=== PATIENT | female | born 1970 | race Caucasian/White ===

== ENCOUNTER 2016-11-19 19:32 | Inpatient (IN) | payer MEDICAID ==
[~2016-11-19] VITALS: Ht 149.9 cm; Wt 88.0 kg
[2016-11-19 19:48] VITALS: BP 112/65
--- NOTE | 2016-11-19 20:01 | NUR ---
EKG COMPLETED BY VERN; SHOWN TO ER MD DR BAH BY KONG
--- NOTE | 2016-11-19 20:31 | NUR ---
PT TAKEN TO BED 4
--- NOTE | 2016-11-19 20:35 | NUR ---
PT PRESENTS TO THE ED C/O OF CHEST PAIN. PT STATES THAT IT IS OVER HER CHEST, C/O OF THROBBING PAIN RADIATING TO HER LEFT ARM AND BACK. PT STATES PAIN IS 9/10. PT IS AAO, RR EVEN/UNLABORED, CAP REFILL IMMEDIATE. PT DENIES N/D, BUT STATES THAT SHE HAD AN EPISODE OF VOMITING X1. PT DENIES ANY PAST MEDICAL HISTORY. BED REPOSITIONED FOR COMFORT, BED PUT IN LOWEST POSITION, ER MD DR. BAH MADE AWARE, WILL CONTINUE TO MONITOR.
--- NOTE | 2016-11-19 21:18 | NUR ---
Viola arriaza in [facility] - 11/19/[address] at [address] Cristina evaluating patient at bedside.
--- NOTE | 2016-11-19 21:18 | NUR ---
ER MD DR. BAH EVALUATING PT AT BEDSIDE.
[2016-11-19 21:46] LABS: BASOPHILS # (AUTO) 0.3 K/uL (0.00-0.22); EOSINOPHILS # (AUTO) 0.2 K/uL (0-0.4); EOSINOPHILS % (AUTO) 1.7 % (0.0-4.0); HEMATOCRIT 38.8 % (36-48); HEMOGLOBIN 12.5 g/dL (12.0-16.0); LYMPHOCYTES # (AUTO) 1.3 K/uL (2.5-16.5); LYMPHOCYTES % (AUTO) 10.2 % (20.5-51.1); MEAN CORPUSCULAR HEMOGLOBIN 25 pg (27-31); MEAN CORPUSCULAR HGB CONC 32 g/dL (33-37); MEAN CORPUSCULAR VOLUME 79 fL (80-94); MONOCYTES # (AUTO) 0.6 K/uL (0.8-1.0); MONOCYTES % (AUTO) 4.4 % (1.7-9.3); NEUTROPHILS # (AUTO) 10.1 K/uL (1.8-7.7); NEUTROPHILS % (AUTO) 81.7 % (42.2-75.2); PLATELET COUNT (AUTO) 200 K/uL (140-450); RED BLOOD CELL COUNT(AUTO) 4.93 MIL/uL (4.20-5.40); RED CELL DISTRIBUTION WIDTH 13.5 % (11.6-13.7); WHITE BLOOD COUNT (AUTO) 12.5 K/uL (4.8-10.8)
--- NOTE | 2016-11-19 21:55 | NUR ---
XRAY AT BEDSIDE.
[2016-11-19 22:02] LABS: ANION GAP 10.3 (8-16); CARBON DIOXIDE 26.7 mmol/L (21-32); CREATININE 0.7 mg/dL (0.6-1.3)
[2016-11-19 22:07] LABS: ALBUMIN 3.4 g/dL (3.4-5.0); TOTAL BILIRUBIN 0.5 mg/dL (0.0-1.0)
[2016-11-19 22:09] LABS: AMYLASE 30 U/L (25-115); LIPASE 114 U/L (73-393)
--- NOTE | 2016-11-19 23:06 | NUR ---
CONCHITA BAH AT BEDSIDE.
[2016-11-19] MEDS ORDERED: DOCUSATE SODIUM 100 MG GELCAP PO PRN (23:35)
[2016-11-19] MEDS ORDERED: ONDANSETRON 4 MG/2 ML VIAL IM/IVP PRN (23:35)
[2016-11-19] MEDS ORDERED: KETOROLAC 30 MG/ML VIAL IVP PRN (23:35)
[2016-11-19] MEDS ORDERED: MORPHINE SULFATE 2 MG/ML SYR IVP PRN (23:35)
[2016-11-19 23:53] LABS: APPEARANCE,URINE CLEAR (CLEAR); BILIRUBIN,URINE NEGATIVE (NEGATIVE); BLOOD, URINE NEGATIVE (NEGATIVE); COLOR,URINE YELLOW (YELLOW); LEUKOCYTE ESTERASE ,URINE NEGATIVE (NEGATIVE); NITRITE, URINE NEGATIVE (NEGATIVE); UGLUCOSE 1+ (NEGATIVE)
[2016-11-19 23:55] LABS: PROTHROMBIN TIME 9.8 secs (10.8-13.4)
[2016-11-19 23:59] LABS: BARBITURATE, URINE NEG. ng/ml (NEG <=200); BENZODIAZEPINE, URINE NEG. ng/mL (NEG <=200)
[2016-11-20 00:06] LABS: CHOL/HDL RATIO 3.1 (1-4.5); FREE T4 (FREE THYROXINE) 1.01 ng/dL (0.76-1.46); MAGNESIUM 1.8 mg/dL (1.8-2.4); PHOSPHORUS 3.5 mg/dL (2.5-4.9); THYROID STIMULATING HORMONE 0.66 uIU/mL (0.34-3.74)
[2016-11-20 00:08] LABS: RBC,URINE 0-5 (RARE) /HPF (0-5); WBC,URINE 0-5 (RARE) /HPF (0-5)
[2016-11-20 00:15] LABS: CANNABINOID, URINE NEG. ng/mL (NEG <=50); COCAINE, URINE NEG. ng/mL (NEG <=300); OPIATE, URINE NEG. ng/mL (NEG <=2000); PHENCYCLIDINE SCREEN,URINE NEG. ng/mL (NEG <=25)
--- NOTE | 2016-11-20 00:18 | NUR ---
Patient will be admitted to care of DR. ANDUJAR. Admited to TELEMETRY. Will go to room 119A. Belongings list completed. Report to LIZZIE FERNANDO.
--- NOTE | 2016-11-20 00:30 | NUR ---
ADMITTED THIS 46 YEAR OLD FEMALE FROM ER PER MEJIA WITH CC OF CHEST PAIN, AMBULATED TO BED WITH STEADY GAIT, ASSESSMENT DONE, AAOX4 MALAY SPEAKING ONLY, HX OBTAINED FROM WHO CAN SPEAK, 6/10 CHEST PAIN AT THIS TIME, WILL MEDICATE PRN, INSTRUCTED NPO EXCEPT MEDS, VERBALIZED UNDERSTANDING, PLAN OF CARE DISCUSSED, CALL LIGHT WITHIN REACH.
[2016-11-20] MEDS: HYDROcodone/APAP 7.5/325 MG 1 TAB PO PRN ×3 (00:41→21:22)
[2016-11-20] MEDS: NACL 0.9% 1,000 ML IV SCH ×4 (00:50→23:35)
[2016-11-20 01:00] VITALS: BP 135/74
--- NOTE | 2016-11-20 01:30 | NUR ---
PT AWAKE, VERBALIZED NO MORE CHEST PAIN, NO SOB NOTED, IVF INFUSING WELL, MONITORED CLOSELY.
[2016-11-20] MEDS ORDERED: NITROGLYCERIN 0.4 MG TAB SL PRN (02:55)
[2016-11-20] MEDS ORDERED: DEXTROSE 50% 50 ML SYR IVP PRN (03:00)
--- NOTE | 2016-11-20 04:00 | NUR ---
PT SLEEPING, VITAL SIGNS STABLE, AFEBRILE, DENIES ANY PAIN, IVF INFUSING WELL, MONITORED CLOSELY.
[2016-11-20 04:13] LABS: EOSINOPHILS # (AUTO) 0.2 K/uL (0-0.4); EOSINOPHILS % (AUTO) 1.6 % (0.0-4.0); HEMOGLOBIN 11.8 g/dL (12.0-16.0); WHITE BLOOD COUNT (AUTO) 12.6 K/uL (4.8-10.8)
[2016-11-20 04:22] LABS: ANION GAP 9.5 (8-16); CARBON DIOXIDE 25.8 mmol/L (21-32); CREATININE 0.5 mg/dL (0.6-1.3); POTASSIUM 3.3 mmol/L (3.5-5.1)
[2016-11-20 04:26] LABS: BASOPHILS # (AUTO) 0.2 K/uL (0.00-0.22); BASOPHILS % (AUTO) 1.8 % (0.0-2.0); HEMATOCRIT 36.2 % (36-48); LYMPHOCYTES % (AUTO) 15.6 % (20.5-51.1); MEAN CORPUSCULAR HEMOGLOBIN 26 pg (27-31); MEAN CORPUSCULAR HGB CONC 33 g/dL (33-37); MEAN CORPUSCULAR VOLUME 79 fL (80-94); MONOCYTES # (AUTO) 0.7 K/uL (0.8-1.0); MONOCYTES % (AUTO) 5.5 % (1.7-9.3); NEUTROPHILS # (AUTO) 9.5 K/uL (1.8-7.7); NEUTROPHILS % (AUTO) 75.5 % (42.2-75.2); PLATELET COUNT (AUTO) 195 K/uL (140-450); RED BLOOD CELL COUNT(AUTO) 4.59 MIL/uL (4.20-5.40); RED CELL DISTRIBUTION WIDTH 13.6 % (11.6-13.7)
[2016-11-20 04:31] VITALS: BP 129/66
[2016-11-20] MEDS: INSULIN LISPRO SLIDING SCALE 100 UNITS/ML VIAL SUBQ PRN ×4 (05:52→21:28)
--- NOTE | 2016-11-20 06:00 | NUR ---
BLOOD SUGAR CHECKED WITH 164 RESULT, INSULIN COVERAGE GIVEN WITH EDUCATION PROVIDED, SCD'S APPLIED TO BLE, DENIES ANY PAIN AT THIS TIME, MONITORED CLOSELY.
[2016-11-20] MEDS: BLOOD GLUCOSE MONITORING 1 DEV DEV FS SCH ×4 (06:40→21:27)
--- NOTE | 2016-11-20 07:10 | NUR ---
PT AWAKE, NO SIGNS OF DISTRESS, REPORT GIVEN TO RN VICTOR M FOR CONTINUITY OF CARE.
--- NOTE | 2016-11-20 07:30 | NUR ---
RECEIVED ON BED AAOX4. NO SOB NOTED. NO C/O PAIN AT THIS TIME. IV TO LT AC PATENT AND INTACT. CHEST CLEAR. ABDOMEN SOFT, BOWEL SOUNDS PRESENT. NO EDEMA NOTED. SCD'S IN PLACE. INSTRUCTED PT TO CALL FOR ASSISTANCE, CALL LIGHT WITHIN REACH. PT VERBALIZED UNDERSTANDING.
[2016-11-20 08:00] VITALS: BP 147/88
[2016-11-20] MEDS ORDERED: metFORMIN 500 MG TAB PO SCH (08:00)
--- NOTE | 2016-11-20 08:12 | NUR ---
PATIENT HAS BEEN SCREENED AND CATEGORIZED HIGH NUTRITION RISK. PATIENT WILL BE SEEN WITHIN 1-2 DAYS OF ADMISSION. 11/20/16-11/21/[address]
[2016-11-20] MEDS: ECOTRIN 81 MG TABEC PO SCH (08:47)
[2016-11-20] MEDS: PANTOPRAZOLE 40 MG TABEC PO SCH ×2 (08:47→21:22)
[2016-11-20] MEDS: LISINOPRIL 5 MG TAB PO SCH (08:47)
--- NOTE | 2016-11-20 10:00 | NUR ---
ECHO ON GOING AT THE BEDSIDE.
[2016-11-20 12:00] VITALS: BP 141/77
--- NOTE | 2016-11-20 13:35 | NUR ---
11/20/16 RD INITIAL ASSESSMENT COMPLETED PLEASE REFER TO NUTRITION ASSESSMENT UNDER CARE ACTIVITY FOR ESTIMATED NUTRITIONAL NEEDS. 1. CONTINUE CONSISTENT CARBOHYDRATE DIET 2. PROVIDE NUTRUTION THERAPY EDUCATION NEEDED 3. RD TO FOLLOW UP WITHIN 2-3 DAYS; HIGH RISK VIMAL MCKAY RD
--- NOTE | 2016-11-20 14:35 | NUR ---
DIABETIC TEACHINGS GIVEN TO PT. PRINT OUTS PRINTED IN [place]GOL[place]. PT VERBALIZED UNDERSTANDING.
[2016-11-20 16:00] VITALS: BP 124/73
--- NOTE | 2016-11-20 16:00 | NUR ---
BLE DOPPLER ULTRASOUND ON GOING AT THE BEDSIDE.
[2016-11-20] MEDS: ACETAMINOPHEN 325 MG TAB PO PRN ×2 (16:13→23:56)
[2016-11-20] MEDS ORDERED: ATORVASTATIN 20 MG TAB PO SCH (17:00)
--- NOTE | 2016-11-20 18:55 | NUR ---
PT RESTING NO SOB NOTED. NO C/O PAIN AT THIS TIME. WILL ENDORSE TO NEXT SHIFT NURSE FOR CONTINUITY OF CARE.
--- NOTE | 2016-11-20 19:30 | NUR ---
RECEIVED REPORT FROM AM NURSE. PT AOX4, AMBULATES INDEPENDENTLY, ABLE TO VERBALIZE NEEDS. PT SOB OR S/S ACUTE DISTRESS. PT C/O CHEST PAIN. SEE PAIN ASSESSMENT. WILL MEDICATE ORDERED. GM IN PLACE. SCDs ENSURED. IV ACCESS ASYMPTOMATIC, PATENT AND INTACT. IVF INFUSING WELL. DISCUSSED AND REVIEWED PLAN OF CARE WITH PT. PT VERBALIZED UNDERSTANDIGN. ALL NEEDS MET. SAFETY MEASURES ENSURED. CALL LIGHT WITHIN REACH. WILL CONTINUE TO MONITOR.
[2016-11-20 20:00] VITALS: BP 130/81
--- NOTE | 2016-11-20 21:30 | NUR ---
ADMINISTERED DUE MEDS WITH EDUCATION. ADMINISTERED INSULIN COVERAGE WITH EVENICK SNACKS. PT C/O PAIN. SEE PAIN ASSESSMENT. ADMINISTERED NORCO PO PRN ORDERED. PT VERBALIZED UNDERSTANDING, TOLERATED MEDS WELL. ALL NEEDS MET. SAFETY MEASURES ENSURED. CALL LIGHT WITHIN REACH. WILL CONTINUE TO MONITOR.
--- NOTE | 2016-11-20 23:58 | NUR ---
PT SLEEPING COMFORTABLY, AROUSABLE. PT DENIES PAIN. NO S/S OF ACUTE DISTRESS. TEMP 101.1, COOLING MEASURES ENSURED. PT REQUESTED TYLENOL. ADMINISTERED TYLENOL PO PRN FOR TEMP PER PT REQUEST. ALL NEEDS MET. SAFETY MEASURES ENSURED. CALL LIGHT WITHIN REACH. WILL CONTINUE TO MONITOR.
[2016-11-21] VITALS: BP 132/81
--- NOTE | 2016-11-21 01:00 | NUR ---
TEMP RECHECKED, 99.5; ICE PACKS AND COOLING MEASURES ENSURED. ALL NEEDS MET. IVF INFUSING WELL. SAFETY MEASURES ENSURED. CALL LIGHT WITHIN REACH. WILL CONTINUE TO MONITOR.
[2016-11-21 04:00] VITALS: BP 134/74
--- NOTE | 2016-11-21 04:03 | NUR ---
PT SLEEPING COMFORTABLY. NO S/S OF ACUTE DISTRESS. TEMP 99.2, COOLING MEASURES MAINTAINED. ALL NEEDS MET. IVF INFUSING WELL. SAFETY MEASURES ENSURED. CALL LIGHT WITHIN REACH. WILL CONTINUE TO MONITOR.
[2016-11-21] MEDS: NACL 0.9% 1,000 ML IV SCH ×2 (04:11→11:32)
[2016-11-21] MEDS: BLOOD GLUCOSE MONITORING 1 DEV DEV FS SCH ×2 (06:49→11:37)
[2016-11-21] MEDS: INSULIN LISPRO SLIDING SCALE 100 UNITS/ML VIAL SUBQ PRN ×2 (06:52→11:43)
[2016-11-21 07:13] LABS: BASOPHILS # (AUTO) 0.1 K/uL (0.00-0.22); BASOPHILS % (AUTO) 0.4 % (0.0-2.0); EOSINOPHILS # (AUTO) 0.1 K/uL (0-0.4); EOSINOPHILS % (AUTO) 0.8 % (0.0-4.0); HEMATOCRIT 34.7 % (36-48); HEMOGLOBIN 11.5 g/dL (12.0-16.0); LYMPHOCYTES # (AUTO) 0.9 K/uL (2.5-16.5); MEAN CORPUSCULAR HEMOGLOBIN 26 pg (27-31); MEAN CORPUSCULAR HGB CONC 33 g/dL (33-37); MEAN CORPUSCULAR VOLUME 79 fL (80-94); MONOCYTES % (AUTO) 6.8 % (1.7-9.3); NEUTROPHILS # (AUTO) 12.6 K/uL (1.8-7.7); PLATELET COUNT (AUTO) 171 K/uL (140-450); RED CELL DISTRIBUTION WIDTH 13.9 % (11.6-13.7); WHITE BLOOD COUNT (AUTO) 14.7 K/uL (4.8-10.8)
[2016-11-21 07:20] LABS: ANION GAP 15.3 (8-16); CARBON DIOXIDE 22.3 mmol/L (21-32); CREATININE 0.5 mg/dL (0.6-1.3); POTASSIUM 3.6 mmol/L (3.5-5.1)
--- NOTE | 2016-11-21 07:30 | NUR ---
RECEIVED REPORT FROM SULFONATION EQUIPMENT OPERATOR RN. PATIENT IS IN STABLE CONDITION.
--- NOTE | 2016-11-21 07:30 | NUR ---
ENDORSED PLAN OF CARE TO AM NURSE. CONDITION STABLE.
[2016-11-21 08:00] VITALS: BP 133/73
[2016-11-21 08:14] LABS: T4 (THYROXINE) 6.7 ug/dL (4.5-12.0)
[2016-11-21] MEDS: LISINOPRIL 5 MG TAB PO SCH (08:33)
[2016-11-21] MEDS: PANTOPRAZOLE 40 MG TABEC PO SCH (08:34)
[2016-11-21] MEDS: ECOTRIN 81 MG TABEC PO SCH (08:34)
[2016-11-21] MEDS: ACETAMINOPHEN 325 MG TAB PO PRN (08:35)
--- NOTE | 2016-11-21 08:35 | NUR ---
GAVE PATIENT TYLENOL DUE TO TEMP OF 100.9, WILL CONTINUE TO MONITOR. COOLING MEASURES IN PLACE.
--- NOTE | 2016-11-21 10:30 | NUR ---
RECHECKED PATIENT TEMP AT 99.9, REFILLED ICE BAG AND PLACED BEHIND NECK. PATIENT HAS NO SIGNS AND SYMPTOMS OF DISTRESS NOTED AT THIS TIME. WILL CONTINUE TO MONITOR.
[2016-11-21 12:00] VITALS: BP 118/71
--- NOTE | 2016-11-21 13:15 | NUR ---
GAVE PATIENT INSTRUCTIONS ON HOW TO USE INCENTIVE SPIROMETER WHILE IN THE HOSPITAL AND AT HOME. PATIENT VERBALIZED UNDERSTANDING.
[2016-11-21] MEDS ORDERED: METF500T PO (13:24)
[2016-11-21] MEDS ORDERED: ASPI-1173 PO (13:24)
[2016-11-21] MEDS ORDERED: ATOR20TA40 PO (13:24)
[2016-11-21] MEDS ORDERED: PANT40EC28 PO (13:24)
--- NOTE | 2016-11-21 15:20 | NUR ---
RECEIVED REPORT ON PT FROM KASSIE KLINE. GAVE DC INSTRUCTIONS TO PT USING TRANSLATION PHONE, #[phone]. PT VERBALIZED UNDERSTANDING AND SIGNED ALL PAPERWORK. PT WILL GET DRESSED AND CALL RN WHEN READY TO GO. CALL LIGHT WITHIN REACH.
--- NOTE | 2016-11-21 15:35 | NUR ---
CUT ALL ID BANDS. REMOVED TELE BOX. REMOVED IV CANNULA INTACT. PT TOOK ALL BELONGINGS. PT REFUSED WHEELCHAIR. WALKED PT OUT OF UNIT. ACCOMPANIED BY SPOUSE. PT IN STABLE CONDITION.
[2016-11-21] MEDS ORDERED: PANTOPRAZOLE 40 MG TABEC PO SCH (16:30)
== END 2016-11-21 15:35 | disposition home or self-care (01) | DRG 243 ==
LOC: MED 19:32 → MTU 23:41
PROVIDERS: ADMIT Family Medicine; ATTEND Family Medicine
DX: K21.9 Gastro-esophageal reflux disease without esophagitis (principal); E11.65 Type 2 diabetes mellitus with hyperglycemia; M94.0 Chondrocostal junction syndrome [Tietze]; D72.829 Elevated white blood cell count, unspecified; F43.9 Reaction to severe stress, unspecified; E87.1 Hypo-osmolality and hyponatremia; E66.9 Obesity, unspecified; Z83.3 Family history of diabetes mellitus; Z82.49 Family history of ischemic heart disease and other diseases of the circulatory system; Z68.39 Body mass index [BMI] 39.0-39.9, adult; Z79.84 Long term (current) use of oral hypoglycemic drugs
CPT/HCPCS: 36415; 71010; 80048; 80053; 80305; 81001; 82150; 82948; 83036; 83690; 83735; 83880; 84100; 84436; 84439; 84443; 84479; 84484; 85025; 85610; 85730; 87081; 93005; 93925; 93970; 99285; J1815; J7030; Q0092

== ENCOUNTER 2018-12-12 17:30 | Emergency (ER) | payer MEDICAID ==
[~2018-12-12] VITALS: Ht 139.7 cm; Wt 93.4 kg
[~2018-12-12 17:30] MED LIST: ASPI-1173 PO; ATOR20TA40 PO; METF500T PO; PANT40EC28 PO
[2018-12-12 18:09] VITALS: BP 152/79
--- NOTE | 2018-12-12 19:52 | NUR ---
PT AMBULATED TO [facility].
--- NOTE | 2018-12-12 19:53 | NUR ---
PT SEEN AND EVALUATED BY DR CABAN, SEE MD NOTES FOR FURTHER ASSESSMENT.
[2018-12-12] MEDS ORDERED: cefTRIAXone 1,000 MG in LIDOCAINE MPF 1% 2.1 ML IM ONE (19:55)
--- NOTE | 2018-12-12 19:55 | NUR ---
Patient discharged with v/s stable. Written and verbal after care instructions given and explained. Patient alert, oriented and verbalized understanding of instructions. Ambulatory with steady gait. All questions addressed prior to discharge. ID band removed. Patient advised to follow up with PMD. Rx of KEFLEX, NAPROSYN given. Patient educated on indication of medication including possible reaction and side effects. Opportunity to ask questions provided and answered. D/C BY DR CABAN
== END 2018-12-12 19:55 | disposition home or self-care (01) ==
LOC: MED 17:30
DX: L03.311 Cellulitis of abdominal wall (principal); Z79.82 Long term (current) use of aspirin; Z79.899 Other long term (current) drug therapy
CPT/HCPCS: 96372; 99283; J0696; J2001

== ENCOUNTER 2021-05-05 08:51 | Emergency (ER) | payer MEDICAID ==
[~2021-05-05] VITALS: Ht 148.6 cm; Wt 87.5 kg
[~2021-05-05 08:51] MED LIST changes: -ASPI-1173 PO; +ASPI-1856 PO; -PANT40EC28 PO; +PANT40EC56 PO
[2021-05-05 08:54] VITALS: BP 139/92
[2021-05-05] MEDS ORDERED: ASPIRIN 325 MG TAB PO ONE (09:00)
[2021-05-05 09:32] LABS: BASOPHILS % (AUTO) 0.7 % (0.0-2.0); EOSINOPHILS % (AUTO) 0.7 % (0.0-4.0); HEMOGLOBIN 10.8 g/dL (12.0-16.0); LYMPHOCYTES # (AUTO) 1.8 K/uL (2.5-16.5); LYMPHOCYTES % (AUTO) 27.6 % (20.5-51.1); MEAN CORPUSCULAR HEMOGLOBIN 22 pg (27-31); MEAN CORPUSCULAR HGB CONC 32 g/dL (33-37); MEAN CORPUSCULAR VOLUME 70.5 fL (80-94); MONOCYTES # (AUTO) 0.4 K/uL (0.8-1.0); MONOCYTES % (AUTO) 5.7 % (1.7-9.3); NEUTROPHILS # (AUTO) 4.3 K/uL (1.8-7.7); NEUTROPHILS % (AUTO) 65.3 % (42.2-75.2); PLATELET COUNT (AUTO) 301 K/uL (140-450); RED BLOOD CELL COUNT(AUTO) 4.82 MIL/uL (4.20-5.40); RED CELL DISTRIBUTION WIDTH 17.6 % (11.6-13.7); WHITE BLOOD COUNT (AUTO) 6.6 K/uL (4.8-10.8)
[2021-05-05 10:06] LABS: ANION GAP 10.3 (8-16); CARBON DIOXIDE 27.3 mmol/L (21-32); CREATININE 0.6 mg/dL (0.6-1.3); POTASSIUM 3.6 mmol/L (3.5-5.1); TOTAL BILIRUBIN 0.2 mg/dL (0.0-1.0)
[2021-05-05] MEDS ORDERED: KETOROLAC 15 MG/ML VIAL IM ONE (10:10)
[2021-05-05] MEDS ORDERED: DICYCLOMINE HCL LIQUID 20 MG, ALUMINUM HYD/MAG/SIMETHICONE 30 ML, LIDOCAINE VISCOUS 2% ... PO ONE ×3 (10:10)
[2021-05-05] MEDS ORDERED: DICYCLOMINE HCL LIQUID 10 MG/5 ML UDC ONE (10:31)
[2021-05-05] MEDS ORDERED: ALUMINUM HYD/MAG/SIMETHICONE 30 ML UDC ONE (10:31)
[2021-05-05] MEDS ORDERED: diazePAM 5 MG TAB PO ONE (10:45)
[2021-05-05] MEDS ORDERED: NAPR-54 PO (10:45)
[2021-05-05 12:28] VITALS: BP 94/37
== END 2021-05-05 12:28 | disposition home or self-care (01) ==
LOC: MED 08:51
DX: R07.89 Other chest pain (principal); E11.9 Type 2 diabetes mellitus without complications; Z79.84 Long term (current) use of oral hypoglycemic drugs; Z79.82 Long term (current) use of aspirin; Z79.899 Other long term (current) drug therapy
CPT/HCPCS: 36415; 71045; 80053; 83690; 84484; 85025; 93005; 96372; 99285; J1885

== ENCOUNTER 2021-07-23 10:14 | Emergency (ER) | payer MEDICAID ==
[~2021-07-23] VITALS: Ht 146.6 cm; Wt 87.7 kg
[~2021-07-23 10:14] MED LIST changes: +METF-564 PO; -METF500T PO; +NAPR-54 PO
[2021-07-23 10:19] VITALS: BP 159/90
[2021-07-23] MEDS: IBUPROFEN 400 MG TAB PO ONE (10:48)
[2021-07-23] MEDS ORDERED: NAPR-1704 PO (10:51)
== END 2021-07-23 11:05 | disposition home or self-care (01) ==
LOC: MED 10:14
DX: G44.209 Tension-type headache, unspecified, not intractable (principal); M54.2 Cervicalgia; M54.6 Pain in thoracic spine; E11.9 Type 2 diabetes mellitus without complications; Z86.2 Personal history of diseases of the blood and blood-forming organs and certain disorders involving the immune mechanism; Z79.1 Long term (current) use of non-steroidal anti-inflammatories (NSAID); Z79.899 Other long term (current) drug therapy; Z79.82 Long term (current) use of aspirin
CPT/HCPCS: 81002; 81025; 82948; 99282

== ENCOUNTER 2021-12-08 16:19 | Emergency (ER) | payer MEDICAID ==
[~2021-12-08] VITALS: Ht 144.8 cm; Wt 87.8 kg
[~2021-12-08 16:19] MED LIST changes: +METF-346 PO; -METF-564 PO; +NAPR-1704 PO
[2021-12-08 16:32] VITALS: BP 128/55
--- NOTE | 2021-12-08 16:40 | NUR ---
PT AMB TO BED 2.
[2021-12-08] MEDS ORDERED: NACL 0.9% 1,000 ML IV SCH (18:20)
--- NOTE | 2021-12-08 18:23 | NUR ---
PT C/O GENERALIZED ABDOMINAL PAIN RADIATING TO RIGHT FLANK X1 WEEK. DENIES N/V. IV INSERTED TO L AC #[id number]. BLOOD DRAWN, URINE COLLECTED.
[2021-12-08 18:37] LABS: BASOPHILS # (AUTO) 0.1 K/uL (0.00-0.22); BASOPHILS % (AUTO) 0.9 % (0.0-2.0); EOSINOPHILS # (AUTO) 0.1 K/uL (0-0.4); HEMATOCRIT 36.4 % (36-48); HEMOGLOBIN 11.4 g/dL (12.0-16.0); LYMPHOCYTES # (AUTO) 2.6 K/uL (2.5-16.5); LYMPHOCYTES % (AUTO) 30.2 % (20.5-51.1); MEAN CORPUSCULAR HEMOGLOBIN 22 pg (27-31); MEAN CORPUSCULAR HGB CONC 31 g/dL (33-37); MONOCYTES # (AUTO) 0.5 K/uL (0.8-1.0); MONOCYTES % (AUTO) 5.3 % (1.7-9.3); NEUTROPHILS # (AUTO) 5.4 K/uL (1.8-7.7); NEUTROPHILS % (AUTO) 62.6 % (42.2-75.2); PLATELET COUNT (AUTO) 261 K/uL (140-450); RED BLOOD CELL COUNT(AUTO) 5.21 MIL/uL (4.20-5.40); WHITE BLOOD COUNT (AUTO) 8.6 K/uL (4.8-10.8)
[2021-12-08 18:51] LABS: BILIRUBIN,URINE NEGATIVE (NEGATIVE); BLOOD, URINE TRACE-I (NEGATIVE); LEUKOCYTE ESTERASE ,URINE NEGATIVE (NEGATIVE); NITRITE, URINE NEGATIVE (NEGATIVE); PH,URINE 5.5 (5.0-9.0); UGLUCOSE 3+ (NEGATIVE)
[2021-12-08 18:55] LABS: ALBUMIN 3.6 g/dL (3.4-5.0); ANION GAP 11.4 (8-16); ASPARTATE AMINOTRANSFERASE 18 U/L (15-37); CARBON DIOXIDE 28.5 mmol/L (21-32); CHLORIDE 95 mmol/L (98-107); CREATININE 0.6 mg/dL (0.6-1.3); GFR ARICAN-AMERICAN 137 mL/min (>90); GLUCOSE 306 mg/dL (74-106); LIPASE 142 U/L (73-393); POTASSIUM 3.9 mmol/L (3.5-5.1); SODIUM SERUM 131 mmol/L (136-145); TOTAL BILIRUBIN 0.2 mg/dL (0.0-1.0); UREA NITROGEN, BLOOD 16 mg/dL (7-18)
[2021-12-08 18:58] LABS: APPEARANCE,URINE CLEAR (CLEAR); COLOR,URINE YELLOW (YELLOW)
[2021-12-08 18:59] LABS: ACETONE, SERUM NEGATIVE (NEGATIVE)
[2021-12-08 19:08] LABS: RBC,URINE 0-5 /HPF (0-5); WBC,URINE NONE SEEN /HPF (0-5)
[2021-12-08 19:09] LABS: YEAST,URINE Few /HPF (None Seen)
[2021-12-08 22:08] VITALS: BP 134/68
== END 2021-12-08 21:50 | disposition home or self-care (01) ==
LOC: MED 16:19
DX: K80.20 Calculus of gallbladder without cholecystitis without obstruction (principal); E11.65 Type 2 diabetes mellitus with hyperglycemia; Z79.84 Long term (current) use of oral hypoglycemic drugs; Z79.82 Long term (current) use of aspirin; Z79.899 Other long term (current) drug therapy
CPT/HCPCS: 36415; 74176; 80053; 81001; 81025; 82009; 83690; 85025; 87086; 99284; J7030; 81002; 99283

== ENCOUNTER 2022-08-05 10:41 | Emergency (ER) | payer MEDICAID, OTHER ==
[~2022-08-05] VITALS: Ht 152.4 cm; Wt 87.7 kg
[2022-08-05 11:12] VITALS: BP 155/79
--- NOTE | 2022-08-05 11:36 | NUR ---
C/O HEADACHE, CHEST PAIN RADIATING TO LEFT SHOULDER, NAUSEA, AND BLURRY VISION X 3 DAYS. PMH: DM MEDS: METFORMIN
[2022-08-05] MEDS ORDERED: PROCHLORPERAZINE 10 MG/2 ML VIAL IM ONE (12:45)
[2022-08-05] MEDS ORDERED: KETOROLAC 30 MG/ML VIAL IM ONE (12:45)
[2022-08-05] MEDS ORDERED: IBUP-2213 PO (13:59)
[2022-08-05 14:20] VITALS: BP 115/64
== END 2022-08-05 14:25 | disposition home or self-care (01) ==
LOC: MED 10:41
DX: R51.9 Headache, unspecified (principal); M25.512 Pain in left shoulder; E11.9 Type 2 diabetes mellitus without complications; Z79.4 Long term (current) use of insulin; Z79.899 Other long term (current) drug therapy
CPT/HCPCS: 93005; 96372; 99284; J0780; J1885; Q0163

== ENCOUNTER 2023-04-23 12:08 | Emergency (ER) | payer OTHER ==
[~2023-04-23] VITALS: Ht 147.3 cm; Wt 83.0 kg
[~2023-04-23 12:08] MED LIST changes: +IBUP-2213 PO
[2023-04-23 12:15] VITALS: BP 135/82; PULSE 78; RESP 16; TEMP 98.6; O2SAT 99
[2023-04-23] MEDS: ACETAMINOPHEN EXTRA STRENGTH 500 MG TAB PO ONE (13:29)
[2023-04-23 13:38] LABS: FLU A ANTIGEN negative (NEGATIVE); FLU B ANTIGEN negative (NEGATIVE)
[2023-04-23] MEDS ORDERED: ACET-10509 PO (14:01)
[2023-04-23] MEDS ORDERED: IBUP-2213 PO (14:01)
== END 2023-04-23 14:06 | disposition home or self-care (01) ==
LOC: MED 12:08
DX: J06.9 Acute upper respiratory infection, unspecified (principal); Z20.822 Contact with and (suspected) exposure to COVID-19; R19.7 Diarrhea, unspecified; M25.512 Pain in left shoulder; E11.9 Type 2 diabetes mellitus without complications; Z79.899 Other long term (current) drug therapy; Z79.82 Long term (current) use of aspirin
CPT/HCPCS: 99283

== ENCOUNTER 2023-09-13 11:30 | Emergency (ER) | payer MEDICAID, OTHER ==
[~2023-09-13] VITALS: Ht 147.3 cm; Wt 79.8 kg
[~2023-09-13 11:30] MED LIST changes: +ACET-10509 PO; +NAPR-337 PO; -NAPR-54 PO
[2023-09-13 11:51] VITALS: BP 138/60; PULSE 77; RESP 18; TEMP 97; O2SAT 99
[2023-09-13 13:46] LABS: BASOPHILS # (AUTO) 0.1 K/uL (0.00-0.22); BASOPHILS % (AUTO) 0.9 % (0.0-2.0); EOSINOPHILS # (AUTO) 0.2 K/uL (0-0.4); HEMATOCRIT 40.8 % (36-48); HEMOGLOBIN 13.3 g/dL (12.0-16.0); LYMPHOCYTES # (AUTO) 1.6 K/uL (2.5-16.5); LYMPHOCYTES % (AUTO) 28.2 % (20.5-51.1); MEAN CORPUSCULAR HEMOGLOBIN 26 pg (27-31); MEAN CORPUSCULAR HGB CONC 33 g/dL (33-37); MEAN CORPUSCULAR VOLUME 80.6 fL (80-94); MONOCYTES # (AUTO) 0.4 K/uL (0.8-1.0); MONOCYTES % (AUTO) 6.6 % (1.7-9.3); NEUTROPHILS # (AUTO) 3.5 K/uL (1.8-7.7); NEUTROPHILS % (AUTO) 61.3 % (42.2-75.2); PLATELET COUNT (AUTO) 188 K/uL (140-450); RED BLOOD CELL COUNT(AUTO) 5.06 MIL/uL (4.20-5.40); RED CELL DISTRIBUTION WIDTH 13.7 % (11.6-13.7); WHITE BLOOD COUNT (AUTO) 5.8 K/uL (4.8-10.8)
[2023-09-13] MEDS: ACETAMINOPHEN 325 MG TAB PO ONE (13:49)
[2023-09-13] MEDS: KETOROLAC 30 MG/ML VIAL IM ONE (13:50)
[2023-09-13 14:04] LABS: CARBON DIOXIDE 29.9 mmol/L (21-32); CREATININE 0.6 mg/dL (0.6-1.3); POTASSIUM 3.9 mmol/L (3.5-5.1)
[2023-09-13 14:14] LABS: ALANINE AMINOTRANSFERASE 26 U/L (12-78); ALBUMIN 3.2 g/dL (3.4-5.0); ALKALINE PHOSPHATASE 115 U/L (50-136); ASPARTATE AMINOTRANSFERASE 23 U/L (15-37); BILIRUBIN,DIRECT 0.1 mg/dL (0.0-0.3); LIPASE 41 U/L (16-77); TOTAL BILIRUBIN 0.3 mg/dL (0.0-1.0)
[2023-09-13 16:57] VITALS: BP 125/54; PULSE 58; RESP 18; TEMP 98.1; O2SAT 100
[2023-09-13 18:11] LABS: BILIRUBIN,URINE NEGATIVE (NEGATIVE); BLOOD, URINE TRACE-I (NEGATIVE); COLOR,URINE YELLOW (YELLOW); LEUKOCYTE ESTERASE ,URINE TRACE (NEGATIVE); NITRITE, URINE NEGATIVE (NEGATIVE); PROTEIN,URINE NEGATIVE (NEGATIVE); UGLUCOSE 3+ (NEGATIVE); UROBILINOGEN,URINE 0.2 EU/dL (0.2 - 1)
[2023-09-13 18:12] LABS: APPEARANCE,URINE SLIGHTLY CLOUDY (CLEAR)
[2023-09-13 18:13] LABS: RBC,URINE 0-5 /HPF (0-5)
[2023-09-13 18:14] LABS: BACTERIA,URINE 3+ /HPF (None Seen); MUCUS,URINE None Seen /LPF (None Seen); SQUAMOUS EPITHELIAL CELL,UR 0-3 (FEW) /LPF (0-3 (FEW)); WBC,URINE 0-5 /HPF (0-5)
[2023-09-13] MEDS ORDERED: IBUP-2213 PO (18:28)
[2023-09-16] MEDS ORDERED: CEPH-588 PO (04:39)
== END 2023-09-13 18:36 | disposition home or self-care (01) ==
LOC: MED 11:30
DX: R10.12 Left upper quadrant pain (principal); R10.32 Left lower quadrant pain; E11.9 Type 2 diabetes mellitus without complications; Z79.899 Other long term (current) drug therapy; Z79.82 Long term (current) use of aspirin
CPT/HCPCS: 36415; 71045; 74176; 80048; 80076; 81001; 81025; 83690; 84484; 85025; 87086; 93005; 96372; 99285; J1885; 87186

== ENCOUNTER 2023-11-29 18:08 | Emergency (ER) | payer MEDICAID ==
[~2023-11-29] VITALS: Ht 152.4 cm; Wt 77.6 kg
[~2023-11-29 18:08] MED LIST changes: -ACET-10509 PO; +ACET500T99 PO; +CEPH-588 PO
[2023-11-29 18:36] VITALS: BP 181/82; PULSE 69; RESP 18; TEMP 98.7; O2SAT 99
[2023-11-29 21:10] LABS: BASOPHILS # (AUTO) 0.1 K/uL (0.00-0.22); BASOPHILS % (AUTO) 0.8 % (0.0-2.0); EOSINOPHILS # (AUTO) 0.1 K/uL (0-0.4); HEMATOCRIT 38.1 % (36-48); HEMOGLOBIN 12.6 g/dL (12.0-16.0); LYMPHOCYTES # (AUTO) 2.3 K/uL (2.5-16.5); LYMPHOCYTES % (AUTO) 29.4 % (20.5-51.1); MEAN CORPUSCULAR HEMOGLOBIN 27 pg (27-31); MEAN CORPUSCULAR HGB CONC 33 g/dL (33-37); MEAN CORPUSCULAR VOLUME 82.5 fL (80-94); MONOCYTES # (AUTO) 0.5 K/uL (0.8-1.0); MONOCYTES % (AUTO) 6.6 % (1.7-9.3); NEUTROPHILS # (AUTO) 4.9 K/uL (1.8-7.7); NEUTROPHILS % (AUTO) 62.2 % (42.2-75.2); PLATELET COUNT (AUTO) 214 K/uL (140-450); RED BLOOD CELL COUNT(AUTO) 4.62 MIL/uL (4.20-5.40); RED CELL DISTRIBUTION WIDTH 14.9 % (11.6-13.7); WHITE BLOOD COUNT (AUTO) 7.8 K/uL (4.8-10.8)
[2023-11-29 21:30] LABS: ALBUMIN 3.8 g/dL (3.4-5.0); ANION GAP 10.9 (8-16); CALCIUM 9.6 mg/dL (8.5-10.1); CARBON DIOXIDE 31.1 mmol/L (21-32); CREATININE 0.8 mg/dL (0.6-1.3); TOTAL BILIRUBIN 0.4 mg/dL (0.0-1.0); TOTAL PROTEIN, SERUM 7.2 g/dL (6.4-8.2)
[2023-11-29 23:04] LABS: APPEARANCE,URINE CLEAR (CLEAR); BILIRUBIN,URINE NEGATIVE (NEGATIVE); BLOOD, URINE NEGATIVE (NEGATIVE); COLOR,URINE YELLOW (YELLOW); LEUKOCYTE ESTERASE ,URINE TRACE (NEGATIVE); NITRITE, URINE NEGATIVE (NEGATIVE); PROTEIN,URINE NEGATIVE (NEGATIVE); UGLUCOSE NEGATIVE (NEGATIVE); UROBILINOGEN,URINE 0.2 EU/dL (0.2 - 1)
[2023-11-29 23:10] LABS: BACTERIA,URINE 10-30 (MOD) /HPF (None Seen); MUCUS,URINE 1+ /LPF (None Seen); RBC,URINE 0-5 /HPF (0-5); SQUAMOUS EPITHELIAL CELL,UR 0-3 (FEW) /LPF (0-3 (FEW))
[2023-11-30] MEDS ORDERED: cefTRIAXone 1,000 MG VIAL ONE (00:06)
[2023-11-30] MEDS: HYDROcodone/APAP 5/325 MG 1 TAB TAB PO ONE (00:11)
[2023-11-30] MEDS ORDERED: CEPH-588 PO (00:50)
[2023-11-30 01:07] VITALS: BP 161/58; PULSE 65; RESP 20; TEMP 98.7; O2SAT 99
== END 2023-11-30 01:07 | disposition home or self-care (01) ==
LOC: MED 18:08
DX: N39.0 Urinary tract infection, site not specified (principal); E11.9 Type 2 diabetes mellitus without complications; I10 Essential (primary) hypertension; Z98.890 Other specified postprocedural states; Z79.899 Other long term (current) drug therapy; Z79.82 Long term (current) use of aspirin
CPT/HCPCS: 36415; 80053; 81001; 82948; 83690; 85025; 87086; 87186; 93005; 96365; 99284; J0696; J7030